=== PATIENT | female | born 1940 | race Hispanic/Latino ===

== ENCOUNTER 2021-07-06 08:16 | Emergency (ER) | payer MEDICARE, OTHER ==
[~2021-07-06] VITALS: Ht 149.9 cm; Wt 49.0 kg
[2021-07-06] MEDS ORDERED: FLUORESCEIN SOD(OPTH) 1 MG STRP OP ONE (08:45)
[2021-07-06] MEDS ORDERED: TETRACAINE HCL 0.5% OPTH SOLN 4 ML BTL OP ONE (08:45)
[2021-07-06 10:53] VITALS: BP 118/72
== END 2021-07-06 10:54 | disposition home or self-care (01) ==
LOC: ER 08:26
DX: H11.31 Conjunctival hemorrhage, right eye (principal); E11.40 Type 2 diabetes mellitus with diabetic neuropathy, unspecified; G30.9 Alzheimer's disease, unspecified; F02.80 Dementia in other diseases classified elsewhere, unspecified severity, without behavioral disturbance, psychotic disturbance, mood disturbance, and anxiety; I10 Essential (primary) hypertension; I25.10 Atherosclerotic heart disease of native coronary artery without angina pectoris; K21.9 Gastro-esophageal reflux disease without esophagitis; F41.9 Anxiety disorder, unspecified
CPT/HCPCS: 70450; 70480; 99283